=== PATIENT | female | born 2005 | race Caucasian/White ===

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

== ENCOUNTER → 2024-01-19 10:23 | Outpatient (CLI) | payer OTHER, SELFPAY ==
--- NOTE | 2024-01-19 10:25 | DI.RAD.S_ITS ---
PROCEDURE: [place] WRIST INJECTION MR/CT RT INDICATIONS: SPRAIN RT WRIST COMPARISON: [facility], MR, MR WRIST RT W CON, 01/19/2024, 11:39. TECHNIQUE: After informed consent had been obtained, the wrist was examined fluoroscopically, and a site chosen for injection of the radiocarpal compartment from a dorsal approach. Skin was prepped and draped in a sterile fashion and 1% lidocaine infiltrated from the skin down to the articular surface. A 25 gauge hypodermic needle was then introduced into the articular space region and a modest amount of contrast medium was instilled ; however the contrast was not in the intra-articular space. Another unsuccessful attempt to access the wrist joint through a dorsal approach, the 25 gauge needle was used to access the anatomic snuffbox ; 1 cc of iodinated contrast was injected through the lateral wrist through the anatomic snuffbox region indicating intra-articular access. This was followed by approximately 4 mL of a dilute gadolinium solution. Needle was removed and dressing was applied. The patient experienced no complications throughout the procedure and left the fluoroscopic suite in no apparent distress. FINDINGS: Initial dorsal approach to access the wrist joint was unsuccessful. Subsequent fluoroscopic spot image from a lateral/anatomic snuffbox approach demonstrates intra-articular location to injected iodinated contrast. IMPRESSION: Successful fluoroscopic-guided administration of dilute Gadolinium solution for wrist MR arthrogram. Dictated by: Jorge Bhagat M.D. on 01/19/2024 at 12:52 Approved by: Jorge Bhagat M.D. on 01/19/2024 at 12:58
--- NOTE | 2024-01-19 10:25 | DI.MRI.S_ITS ---
PROCEDURE: MR WRIST RT W CON INDICATIONS: SPRAIN RT WRIST TECHNIQUE: After the administration of 3-4 mL of dilute intra-articular Gadolinium contrast into the radiocarpal compartment, coronal T1 spin echo with fat saturation and T2 fast spin echo with fat saturation, axial T1 spin echo and T2 fast spin echo with fat saturation, sagittal T1 spin echo with and without fat saturation through the wrist. COMPARISON: [facility] [place], CR, XR WRIST 3+ VIEWS RIGHT, 12/30/2023, 10:17. [facility], , [place] WRIST INJECTION MR/CT RT, 01/19/2024, 10:00. FINDINGS: Image quality: Excellent. Bones and cartilage: The carpal bones are normally aligned. No acute osseous fracture. Very mild osseous edema is seen in the ulnar fovea adjacent to the triangular fibrocartilage attachment. No evidence for avascular necrosis. Carpal ligaments: The scapholunate and lunotriquetral ligaments appear intact, without gadolinium extravasation into the mid-carpal compartment. On sagittal images, the pisohamate ligament appears intact. Triangular fibrocartilage complex: Intermediate signal within the ulnar styloid and foveal attachments of the triangular fibrocartilage with mild edema in the ulnar fovea. No gadolinium extravasation into the distal radioulnar joint. Tendons and soft tissues: The carpal tunnel structures appear normal, including the median nerve. The ulnar nerve appears normal within Guyon's canal. Mild tendinosis of the extensor carpi ulnaris tendon with borderline volar subluxation. Extravasated contrast material is seen within the 1st through 3rd extensor compartments. The remaining extensor tendon compartments demonstrate normal morphology, without pathologic tendon sheath fluid. No soft tissue ganglion cysts. IMPRESSION: 1. Mild extensor carpi ulnaris tendinosis with borderline volar subluxation, and injury to the tendon subsheath is not excluded. 2. Mildly increased signal in the ulnar attachments of the triangular fibrocartilage without uptake of intra-articular contrast material could represent subtle partial tearing. No full-thickness triangular fibrocartilage tear or extravasation of contrast material into the distal radioulnar joint. 3. Mild osseous edema in the distal ulna may be related to traction trabecular bone injury or possibly a mild osseous contusion. Approved by: Pato Kolb M.D. on 01/19/2024 at 16:07
[2024-01-19] MEDS: LIDOCAINE 1% 20 ML INJ (13:27)
[2024-01-19] MEDS: SODIUM CHLORIDE 0.9 % 20 ML VIAL IV (13:27)
== END ==
PROVIDERS: Referring Provider Physician Assistant Medical; Visit Provider Physician Assistant Medical
DX: S63.591A Other specified sprain of right wrist, initial encounter (principal); X58.XXXA Exposure to other specified factors, initial encounter
CPT/HCPCS: 25246; 73115; 73222; A9579; Q9967